=== PATIENT | female | born 1985 | race Caucasian/White ===

== ENCOUNTER 2019-10-29 22:20 | Emergency (ER) | payer SELFPAY ==
[2019-10-29 22:21] VITALS: BP 119/72; PULSE 101; RESP 15; TEMP 36.6; O2SAT 97; BMI 23.2
--- NOTE | 2019-10-30 01:01 | ED.DCSUM_ITS ---
- ER Visit Summary Date of Service: 10/30/19 Chief Complaint: Sent in for possibly low potassium History of Present Illness: The patient is a 34 F denies any significant past medical history. Prior C-sections and tubal ligation. Patient seen a physician in [place]. Said she has had some recent nausea. They check labs told her potassium was low and sent her into the emergency department. She denies any diarrhea. No vomiting. No dysuria. Physical Examination: Young female no acute distress vital signs stable afebrile. H EENT exam unremarkable. Moist his membranes. Neck nontender. Lungs clear to auscultation. Heart regular rhythm no murmur. Abdomen soft nontender. Normal bowel sounds. Patient moving all 4 extremities. He does have trace swelling in both feet. But the lower legs are nonswollen. Neurovascular intact. No significant edema. Neurologically she is awake alert with no focal motor deficits. Test Results: CBC shows acute abnormality white count of 4. Hemoglobin 13. Electrolytes unremarkable chloride of 111. Potassium normal at 3.8 normal gap of 3. Normal BUN and creatinine. Normal glucose. Emergency Department Course and Treatment: Be obtained. Patient is reportedly taking oral potassium. Repeat exam unchanged at 2 AM. I discussed the patient her normal labs. She was upset because said she has been dealing with this for months. No was given her any answers. She was requesting some for pain. She will be given a Naprosyn. I explained her this would not be so we treated with narcotics. Treatment Plan: Follow-up with her primary care physician. Disposition: Discharge Impression: Bipedal swelling of uncertain etiology This note was generated with [employer] dictation software. It may contain incorrect words, spelling, and punctuation that were not noted in review of the chart prior to signing ED Disposition - Plan for ED Patient: Referrals: Care Physician,No Primary [Primary Care Provider] -
[2019-10-30 01:15] LABS: Hematocrit 36.2 % (37-47); Mean Corp Hgb Conc 35.9 g/dL (32-36); Mean Corpuscular Volume 114.2 fL (81-99); Mean Platelet Vol. 8.8 fl (6.2-12.0); Platelet Count 175 K/mm3 (150-450); RBC Distribution Width CV 12.5 % (11.6-14.6); RBC Distribution Width SD 51.5 fl (35.1-43.9); Red Blood Count 3.17 M/mm3 (4.2-5.4); White Blood Count 4.5 K/mm3 (4.4-11.0)
[2019-10-30 01:24] LABS: Anion Gap 3 (5-15); BUN 4 mg/dL (7-18); BUN/Creat Ratio 8.3 RATIO (10-20); Chloride 111 mmol/L (98-107); Creatinine, Serum 0.48 mg/dL (0.55-1.02); EST Glomerular Filtration Rate 156 mL/min (>60); Est Glom Filt Rate - Afr Amer 189 mL/min (>60); Estimated Creatinine Clearance 131.85 ml/min; Glucose 76 mg/dL (74-106); Potassium 3.8 mmol/L (3.5-5.1); Sodium Level 141 mmol/L (136-145)
--- NOTE | 2019-10-30 02:01 | ED.DEP ---
ED Disposition - Plan for ED Patient: Disposition: Home or Assisted Living Instructions: ED Peripheral Edema, Bilateral Referrals: Care Physician,No Primary [Primary Care Provider] - As soon as possible Additional Instructions: Your labs were unremarkable tonight. Your potassium was normal. I do not know what is causing the swelling in your feet. Follow-up with your doctor. Elevate your feet to decrease the swelling.
[2019-10-30] MEDS: Naproxen 500 MG Tablet PO (02:05)
[2019-10-30 02:07] VITALS: PULSE 89; RESP 15; O2SAT 98
== END 2019-10-30 02:10 | disposition home or self-care (01) ==
PROVIDERS: Emergency Provider Emergency Medicine
DX: M79.89 Other specified soft tissue disorders (principal); Z72.0 Tobacco use; R68.83 Chills (without fever)
CPT/HCPCS: 80048; 85027; 99284; A4216